=== PATIENT | male | born 1945 | race Caucasian/White ===

== ENCOUNTER 2020-06-15 11:55 | Emergency (ER) | payer MEDICARE, OTHER ==
[~2020-06-15 11:55] MED LIST: ALL DAY ALLERGY10 M2 PO; ASPIR 8181 MG PO; CETIRIZINE HCL10 MG PO; ECOTRIN81 MG PO; ELIQUIS5 MG PO; GLUCOPHAGE500 MG PO; GLUCOTROL 10 MG10 MG PO; HYTRIN CAP 5 MG5 MG PO; LOPRESSOR 25 MG25 MG PO; LOVAZA1 GM PO; MELATONIN3 MG PO; METFORMIN HCL500 MG PO; MULTAQ 400 MG400 MG PO; NITROSTAT0.4 MG PO; OMEGA-3 FISH OIL PO; OMEPRAZOLE20 M1 PO; OMEPRAZOLE20 MG PO; PRO AIR INH; PROSCAR5 MG PO; STIOLTO RESPIMAT INH; TERAZOSIN HCL10 MG PO; VENTOLIN HFA 66.7 GM INH
[2020-06-15 14:00] LABS: HEMOGLOBIN 9.6 gm/dl (14.0-17.5); RED BLOOD COUNT 3.5 M/UL (4.20-5.50); WHITE BLOOD COUNT 9.1 K/UL (4.5-11.0)
[2020-06-15 14:31] LABS: BUN/CREATININE RATIO 20 (0-10)
[2020-06-15] MEDS ORDERED: K-DUR TAB 20 M20 MEQ PO (18:18)
[2020-06-15] MEDS ORDERED: ONDANSETRON ODT4 MG SL (18:18)
== END 2020-06-15 18:27 | disposition home or self-care (01) ==
LOC: ER1 11:55
PROVIDERS: Physician Assistant
DX: E86.0 Dehydration (principal); E87.6 Hypokalemia; R19.7 Diarrhea, unspecified; F17.290 Nicotine dependence, other tobacco product, uncomplicated; E78.5 Hyperlipidemia, unspecified; J44.9 Chronic obstructive pulmonary disease, unspecified; C34.90 Malignant neoplasm of unspecified part of unspecified bronchus or lung; C61 Malignant neoplasm of prostate; E11.9 Type 2 diabetes mellitus without complications; K21.9 Gastro-esophageal reflux disease without esophagitis; Z91.040 Latex allergy status; Z79.899 Other long term (current) drug therapy
CPT/HCPCS: 71046; 80053; 81001; 82550; 82553; 83690; 83874; 84484; 85025; 93005; 96365; 99285; J3480

== ENCOUNTER 2021-06-29 15:44 | Inpatient (IN) | payer MEDICARE, OTHER ==
[~2021-06-29] VITALS: Ht 162.6 cm; Wt 78.6 kg
[~2021-06-29 15:44] MED LIST changes: +K-DUR TAB 20 M20 MEQ PO; +ONDANSETRON ODT4 MG SL
[2021-06-29 17:35] LABS: HEMOGLOBIN 11.2 gm/dl (14.0-17.5); RED BLOOD COUNT 3.74 M/UL (4.20-5.50); WHITE BLOOD COUNT 6.9 K/UL (4.5-11.0)
[2021-06-29 18:10] LABS: BUN/CREATININE RATIO 11 (0-10)
[2021-06-29] MEDS ORDERED: VITAMIN B-121000 MC3 PO (20:17)
[2021-06-29] MEDS ORDERED: VITAMIN D325 MCG PO (20:18)
[2021-06-29] MEDS ORDERED: FOLIC ACID1 MG PO (20:18)
[2021-06-29] MEDS ORDERED: VITAMIN C250 M1 PO (20:19)
[2021-06-29] MEDS ORDERED: FERROUS SULFAT325 M2 PO (20:19)
[2021-06-29] MEDS ORDERED: MAGNESIUM OXID420 MG PO (20:19)
[2021-06-29] MEDS ORDERED: VITAMIN B-1100 MG PO (20:20)
[2021-06-29] MEDS ORDERED: ELIQUIS5 MG PO (20:20)
[2021-06-30 03:17] LABS: HEMOGLOBIN 10.7 gm/dl (14.0-17.5); RED BLOOD COUNT 3.63 M/UL (4.20-5.50); WHITE BLOOD COUNT 5.9 K/UL (4.5-11.0)
[2021-06-30 03:34] LABS: BUN/CREATININE RATIO 10 (0-10)
[2021-06-30] MEDS ORDERED: STIOLTO RESPIMAT4 GM INH (10:32)
--- NOTE | 2021-06-30 15:07 | NUR ---
HOLTER MONITOR APPLIED PER RESPIRATORY
[2021-06-30] MEDS ORDERED: NUBEQA300 MG PO (20:16)
[2021-06-30] MEDS ORDERED: DIFLUCAN200 MG PO (20:20)
[2021-07-01 03:59] LABS: RED BLOOD COUNT 3.79 M/UL (4.20-5.50)
[2021-07-01 04:39] LABS: BUN/CREATININE RATIO 7 (0-10)
[2021-07-01 07:08] LABS: ACINETOBACTER BAUMANNII Not Detected (Negative); CANDIDA ALBICANS Not Detected (Negative); CANDIDA KRUSEI Not Detected (Negative); CANDIDA TROPICALIS Not Detected (Negative); ENTEROCOCCUS Not Detected (Negative); ESCHERICHIA COLI Not Detected (Negative); HAEMOPHILUS INFLUENZAE Not Detected (Negative); KLEBSIELLA OXYTOCA Not Detected (Negative); KLEBSIELLA PNEUMONIAE Not Detected (Negative); KPC-CARBAPENEM-RESISTANCE GENE Not Detected (Negative); PROTEUS Not Detected (Negative); PSEUDOMONAS AERUGINOSA Not Detected (Negative); SERRATIA MARCESANS Not Detected (Negative); STAPHYLOCOCCUS AUREUS Not Detected (Negative); STREP AGALACTIAE (GROUP B) Not Detected (Negative); STREP PYOGENES (GROUP A) Not Detected (Negative); STREPTOCOCCUS Not Detected (Negative); vanA/B (VANCOMYCIN RESIST GENE Not Detected (Negative)
[2021-07-01 08:26] LABS: STAPHYLOCOCCUS DETECTED (Negative); mecA (METHICILLIN RESIST GENE DETECTED (Negative)
[2021-07-02 06:53] LABS: HEMOGLOBIN 11.3 gm/dl (14.0-17.5); RED BLOOD COUNT 3.96 M/UL (4.20-5.50); WHITE BLOOD COUNT 7.1 K/UL (4.5-11.0)
[2021-07-02 07:13] LABS: BUN/CREATININE RATIO 7 (0-10)
[2021-07-02] MEDS ORDERED: LEVOFLOXACIN500 MG PO (10:52)
[2021-07-02] MEDS ORDERED: DOXYCYCLINE HY100 MG PO (10:52)
[2021-07-02] MEDS ORDERED: LEVOTHYROXINE50 MCG PO (11:02)
[2021-07-03 06:53] LABS: HEMOGLOBIN 11.8 gm/dl (14.0-17.5); RED BLOOD COUNT 4.1 M/UL (4.20-5.50)
[2021-07-03 06:58] LABS: BUN/CREATININE RATIO 7 (0-10)
--- NOTE | 2021-07-03 12:55 | NUR ---
DR MANCIA AWARE RT SAID HALTER MONITOR WAS DONE ON THE FIRST WHILE HE WAS HERE
== END 2021-07-03 13:39 | disposition home or self-care (01) | DRG 603 ==
LOC: ER1 15:44 → M/S 18:54 → CDU 18:54 → M/S 19:59
PROVIDERS: Emergency Medicine; Internal Medicine; ADMIT Internal Medicine
DX: L03.115 Cellulitis of right lower limb (principal); B40.9 Blastomycosis, unspecified; Z20.822 Contact with and (suspected) exposure to COVID-19; R00.1 Bradycardia, unspecified; E11.9 Type 2 diabetes mellitus without complications; I10 Essential (primary) hypertension; E03.9 Hypothyroidism, unspecified; F17.290 Nicotine dependence, other tobacco product, uncomplicated; J44.9 Chronic obstructive pulmonary disease, unspecified; I48.91 Unspecified atrial fibrillation; G47.30 Sleep apnea, unspecified; E87.6 Hypokalemia; H91.90 Unspecified hearing loss, unspecified ear; U07.0 Vaping-related disorder; Z85.118 Personal history of other malignant neoplasm of bronchus and lung; Z92.21 Personal history of antineoplastic chemotherapy; Z85.46 Personal history of malignant neoplasm of prostate; Z80.1 Family history of malignant neoplasm of trachea, bronchus and lung; Z91.040 Latex allergy status; Z79.01 Long term (current) use of anticoagulants; Z86.718 Personal history of other venous thrombosis and embolism; Z90.2 Acquired absence of lung [part of]; Z79.899 Other long term (current) drug therapy
CPT/HCPCS: ECHO; 36415; 36600; 71045; 80048; 80053; 80202; 81001; 82533; 82550; 82553; 82803; 83036; 83605; 83735; 83880; 84132; 84439; 84443; 84484; 85025; 85027; 85610; 85652; 86140; 87040; 87077; 87150; 87186; 93005; 93306; 94640; 94664; 96374; 97162; 97165; 99285; J0692; J2543; J3370; J7070; U0002

== ENCOUNTER 2021-09-20 21:17 | Inpatient (IN) | payer MEDICARE, OTHER ==
[~2021-09-20] VITALS: Ht 182.9 cm; Wt 71.7 kg
[~2021-09-20 21:17] MED LIST changes: +DIFLUCAN200 MG PO; +DOXYCYCLINE HY100 MG PO; +FERROUS SULFAT325 M2 PO; +FOLIC ACID1 MG PO; +LEVOFLOXACIN500 MG PO; +LEVOTHYROXINE50 MCG PO; +MAGNESIUM OXID420 MG PO; +NUBEQA300 MG PO; +STIOLTO RESPIMAT4 GM INH; +VITAMIN B-1100 MG PO; +VITAMIN B-121000 MC3 PO; +VITAMIN C250 M1 PO; +VITAMIN D325 MCG PO
[2021-09-20 21:33] LABS: HEMOGLOBIN 11.7 gm/dl (14.0-17.5); RED BLOOD COUNT 4.05 M/UL (4.20-5.50); WHITE BLOOD COUNT 7.9 K/UL (4.5-11.0)
[2021-09-20 21:55] LABS: BUN/CREATININE RATIO 16 (0-10)
[2021-09-21 05:32] LABS: HEMOGLOBIN 11.1 gm/dl (14.0-17.5); RED BLOOD COUNT 3.84 M/UL (4.20-5.50); WHITE BLOOD COUNT 8.5 K/UL (4.5-11.0)
[2021-09-21 05:51] LABS: BUN/CREATININE RATIO 14 (0-10)
[2021-09-21] MEDS ORDERED: DAILY VITAMIN1 EAC3 PO (14:33)
[2021-09-21] MEDS ORDERED: STIOLTO RESPIMAT4 GM INH (14:34)
[2021-09-21] MEDS ORDERED: OMEPRAZOLE20 MG PO (14:34)
[2021-09-21] MEDS ORDERED: TERAZOSIN HCL10 MG PO (14:35)
[2021-09-22 04:06] LABS: HEMOGLOBIN 11.4 gm/dl (14.0-17.5); RED BLOOD COUNT 4.02 M/UL (4.20-5.50); WHITE BLOOD COUNT 9.5 K/UL (4.5-11.0)
[2021-09-22 04:24] LABS: BUN/CREATININE RATIO 14 (0-10)
--- NOTE | 2021-09-22 15:07 | NUR ---
NOTIFIED PT BEING TRANSFERRED FROM FALL INTERN VIA FLIGHT CREW
== END 2021-09-22 16:16 | disposition short-term general hospital (02) | DRG 271 ==
LOC: ER1 21:17 → CDU 09-21 00:11 → PROG CARE 09-21 00:11 → CCU 09-21 00:11 → PROG CARE 09-21 03:03 → CCU 09-21 18:24
PROVIDERS: Family Medicine; Internal Medicine; ADMIT Internal Medicine
PROC: 5A02210 Assistance with Cardiac Output using Balloon Pump, Continuous (ICD-10-PCS; principal; 2021-09-22)
PROC: 4A023N7 Measurement of Cardiac Sampling and Pressure, Left Heart, Percutaneous Approach (ICD-10-PCS; 2021-09-22)
PROC: 5A2204Z Restoration of Cardiac Rhythm, Single (ICD-10-PCS; 2021-09-22)
PROC: B2111ZZ Fluoroscopy of Multiple Coronary Arteries using Low Osmolar Contrast (ICD-10-PCS; 2021-09-22)
DX: I49.01 Ventricular fibrillation (principal); C79.51 Secondary malignant neoplasm of bone; G40.909 Epilepsy, unspecified, not intractable, without status epilepticus; Z66 Do not resuscitate; Z20.822 Contact with and (suspected) exposure to COVID-19; E11.9 Type 2 diabetes mellitus without complications; E87.6 Hypokalemia; I10 Essential (primary) hypertension; H91.93 Unspecified hearing loss, bilateral; I95.9 Hypotension, unspecified; I48.0 Paroxysmal atrial fibrillation; I08.1 Rheumatic disorders of both mitral and tricuspid valves; J43.9 Emphysema, unspecified; F17.290 Nicotine dependence, other tobacco product, uncomplicated; I45.10 Unspecified right bundle-branch block; Z79.01 Long term (current) use of anticoagulants; Z86.711 Personal history of pulmonary embolism; Z85.118 Personal history of other malignant neoplasm of bronchus and lung; Z85.46 Personal history of malignant neoplasm of prostate; Z80.1 Family history of malignant neoplasm of trachea, bronchus and lung; Z82.3 Family history of stroke; Z91.040 Latex allergy status; Z98.890 Other specified postprocedural states
CPT/HCPCS: 36415; 36600; 70450; 70496; 70498; 70551; 71250; 80048; 80053; 81001; 82140; 82550; 82553; 82803; 82962; 83605; 83735; 83880; 84132; 84439; 84443; 84484; 85025; 85027; 85347; 85610; 87040; 87077; 87086; 87186; 93005; 94640; 94664; 94760; 96374; 99152; 99153; 99285; C1725; C1769; C1887; C1894; J0461; J0696; J1644; J1953; J2250; J3010; J3475; J3480; J7040; Q9967